=== PATIENT | female | born 1960 | race African-American/Black ===

== ENCOUNTER 2024-05-04 10:20 | Outpatient (CLI) | payer BC | END 2024-05-04 10:21 | disposition home or self-care (01) | LOC: BICMAMMO 10:20 | PROVIDERS: ATTEND Family Medicine | DX: Z12.31 Encounter for screening mammogram for malignant neoplasm of breast (principal); Z80.3 Family history of malignant neoplasm of breast | CPT/HCPCS: 77063; 77067 ==

== ENCOUNTER 2024-09-14 09:24 | Outpatient (CLI) | payer BC | END 2024-09-14 09:25 | disposition home or self-care (01) | LOC: ULT 09:24 | PROVIDERS: ATTEND Family Medicine | DX: I73.9 Peripheral vascular disease, unspecified (principal); R59.0 Localized enlarged lymph nodes | CPT/HCPCS: 93880 ==

== ENCOUNTER 2024-11-14 13:52 | Emergency (ER) | payer BC ==
[2024-11-14 14:40] LABS: Hematocrit 38.4 % (36.0-47.0); Hemoglobin 11.9 g/dL (12.0-16.0); Mean Corpuscular Hemoglobin 27.6 pg (27.0-31.0); Mean Corpuscular Volume 89.1 fL (78.0-98.0); Mean Platelet Volume 12.5 fL (7.4-10.4); Platelet Count 150 10x3/uL (130-400); RBC Distribution Width 14.8 % (11.5-14.5); Red Blood Cell (RBC) Count 4.31 mill/uL (4.20-5.40)
[2024-11-14 14:51] LABS: ALT (SGPT) 12 U/L (Less than 34); AST (SGOT) 24 U/L (11-34); Albumin 4.1 g/dL (3.1-4.5); Alkaline Phosphatase 108 U/L (40-110); Anion Gap 16 mmol/L (10-20); BUN (Urea Nitrogen) 19 mg/dL (9.8-20.1); Bilirubin, Total 0.4 mg/dL (0.3-1.2); Calc. Creatinine Clearance 0 mL/min (70-130); Calcium 9.7 mg/dL (7.8-10.44); Carbon Dioxide 23 mmol/L (23-31); Chloride 105 mmol/L (98-107); Estimated GFR 48; Globulin 4.6 g/dL (2.4-3.5); Glucose 91 mg/dL (80-115); Potassium 4.8 mmol/L (3.5-5.1); Protein, Total 8.7 g/dL (5.8-8.1); Sodium 139 mmol/L (136-145)
[2024-11-14 15:36] LABS: Lymphocytes 81 % (21-51); Monocytes 2 % (0-10); Neutrophil 13 % (42-75); Platelet Adequacy Comment Platelets Normal; Polychromasia SLIGHT = 2-3 cells HPF (0-2); Reactive Lymphocytes 4 % (0-10)
== END 2024-11-14 15:50 | disposition home or self-care (01) ==
LOC: ERS 13:52
DX: M79.671 Pain in right foot (principal); I10 Essential (primary) hypertension; F17.220 Nicotine dependence, chewing tobacco, uncomplicated; M79.89 Other specified soft tissue disorders; M21.41 Flat foot [pes planus] (acquired), right foot; M77.31 Calcaneal spur, right foot
CPT/HCPCS: 36415

== ENCOUNTER 2025-05-07 08:13 | Outpatient (CLI) | payer BC | END 2025-05-07 08:14 | disposition home or self-care (01) | LOC: BICMAMMO 08:13 | PROVIDERS: ATTEND Family Medicine | DX: Z12.31 Encounter for screening mammogram for malignant neoplasm of breast (principal); Z80.3 Family history of malignant neoplasm of breast | CPT/HCPCS: 77063; 77067 ==